=== PATIENT | male | born 1940 | race African-American/Black ===

== ENCOUNTER 2016-09-28 12:42 | Inpatient (IN) | payer MEDICARE, SELFPAY ==
--- NOTE | ~2016-09-28 | OP ---
Record Of Operation [facility] [address] [place]. [address] NAME: LISETTE DEWEY : 42 STATUS : ADM IN PAT#: [id number] AGE: 76 ADM/REG DATE : 09/28/16 MR#: [id number] REPORT SERV DATE: 09/28/16 DICTATED BY: BRO GURROLA DATE: 09/28/16 REPORT STATUS : Draft TRANSCRIBED BY: MODL DATE: 09/28/16 DATE OF PROCEDURE: 09/28/2016 PREOPERATIVE DIAGNOSIS: Peripheral arterial disease, nonhealing wound, left foot. POSTOPERATIVE DIAGNOSIS: Peripheral arterial disease, nonhealing wound, left foot. PROCEDURE: 1. Left leg arteriogram. 2. Angioplasty of left superficial femoral artery. 3. Angioplasty, left anterior tibial artery, with pedal access. 4. Debridement of skin, subcutaneous tissues, and bone, left foot, 3 x 2 cm. 5. Placement of VAC dressing, 3 x 2 cm. FELLOW: Dr. Odom. ANESTHESIA: Local with sedation. COMPLICATIONS: None. ESTIMATED BLOOD LOSS: 30 mL. HISTORY: The patient is a 76-year-old male with a left foot wound which is status post toes 3 and 4 amputation which is not healing. Ultrasound showed residual ischemia. It was thought he would benefit from arteriogram with intervention as well as debridement. Discussed in detail with the patient and , and they expressed understanding and desire to proceed. PROCEDURE IN DETAIL: The patient was taken to the operating room and placed in the supine position. He was given IV sedation without complication. Both groins and entire left leg were prepped and draped in sterile fashion. Ultrasound was used to identify the common femoral on the right. 1% lidocaine was infiltrated in the skin and subcutaneous tissues. Under ultrasound guidance, an 18-gauge needle was placed in the common femoral artery. Wire was passed to the aorta which was confirmed with fluoroscopy. The needle was removed. A 5- Turkmen sheath was placed. UF catheter was passed over the wire. Aortogram showed patent aorta and patent common, internal, and external iliac arteries bilaterally. Wire was placed in the catheter, and the catheter was placed into the external iliac artery on the left. Arteriogram showed patent common femoral, profunda femoral, and superficial femoral arteries to the mid thigh. In the distal thigh, there was heavy atherosclerotic disease of the SFA with stenosis. The popliteal artery was patent above and below the knee. The wire was placed back in the catheter and catheter placed as distal as possible in the SFA. Arteriogram below the knee showed a patent peroneal artery to the ankle. The anterior tibial artery was patent to the mid lower leg and occluded. The posterior tibial artery was occluded throughout the lower leg. At the foot, the peroneal artery diminished at the ankle with small collaterals on either foot. The dorsalis pedis artery appeared to reconstitute via collaterals just beneath the ankle joint. A wire was guided into the popliteal artery. Record Of Operation [facility] [address] [facility] [place]. [address] NAME: LISETTE DEWEY : 42 STATUS : ADM IN PAT#: [id number] AGE: 76 ADM/REG DATE : 09/28/16 MR#: [id number] REPORT SERV DATE: 09/28/16 DICTATED BY: BRO GURROLA DATE: 09/28/16 REPORT STATUS : Draft TRANSCRIBED BY: HAN DATE: 09/28/16 The sheath was exchanged for a 65 sheath. The patient was given 4000 units of heparin intravenously. A V-18 was guided into the anterior tibial artery. Attempts were made to cross the distal occlusion with the V-18 and 0.018 TrailBlazer. However, after multiple attempts, this was not possible. Attention was then turned to the foot, and the dorsalis pedis artery was accessed under ultrasound guidance with an 18-gauge needle in a retrograde fashion and micropuncture wire passed proximally. The needle was removed. Micropuncture dilator was placed. The V-18 wire was then easily passed in through the anterior tibial artery to the SFA. A snare was brought from the sheath in the right groin and grasped the V 18 wire which was then brought out of the access in the right groin. The TrailBlazer catheter was then passed over the wire to the dorsalis pedis artery. Arteriogram here showed access within the dorsalis pedis artery filling branches onto the foot. The wire was replaced, and the anterior tibial artery to the dorsalis pedis was angioplastied first with a 2.5 x 150 mm balloon and then a 3 x 220 mm balloon. Post arteriogram now showed a widely patent anterior tibial artery to the foot with prompt flow and no residual stenosis. This was felt to be an excellent result. A 7 mm balloon was then used to angioplasty the stenotic areas in the superficial femoral artery. Post arteriogram here showed the SFA to be patent now with no significant residual stenosis. This was felt to be an excellent result. The sheath was removed. Access was closed with ProGlide device without difficulty. Attention was turned to the left foot. The sutures at the previous amputation were removed. A #10 blade was used to excise the necrotic subcutaneous tissues. What appeared to be necrotic proximal phalanx of the 3rd and 4th toes was identified in the wound. A rongeur was used to remove this to healthy tissue as well. Once all necrotic tissue was removed, the wound was debrided with scissors to healthy tissue. The wound measured 2 x 3 cm. Bovie cautery was used to achieve hemostasis. A small VAC sponge was then cut to appropriate size, secured with adhesive, and suction initiated without difficulty. The patient tolerated the procedure well. He had a strong dorsalis pedis signal at the foot at the end of the case. CITLALY/HAN Bro Gurrola M.D. / [id number] CC: Shane Lee MD
[~2016-09-28 12:42] MED LIST: ACT300 PO; ASAB PO; ASTELIN NAS; ASTEPRO0.15 % NAS; B121000P IM; BYSTOLIC10 MG PO; BYSTOLIC5 MG PO; CALTRAT600 PO; CARDURA8 MG PO; CONSTULOSE PO; COREG6 PO; DEMA20 PO; DIOV160 PO; DIOVAN320 MG PO; DIOVAN40 MG PO; DULERA 200 MCG/13 GM INH; FLEX PO; FLINTSTONE3 PO; FLOMAX4 PO; FLONASE NAS; FOLIC PO; IMU PO; INSNOV7030 SC; IVVIBRA PO; L40 PO; LINZESS 145 M145 MCG PO; LOP25 PO; LORTAB 5 PO; METHOC500B PO; MIRALAX POWDER1 PKT PO; MULTIPLE VIT PO; NEUR400 PO; NEXIUM40 PO; NORV10 PO; NOVOLOG SC; NOVOLOGMIX SC; ORENCIA250 MG SC; P1 PO; PERCOCET 10/3251 TAB PO; PERCOCET1 TA4 PO; PLAQ200B PO; PRILOSEC40 MG PO; PROAIR HFA INH; PROAIRRESP INH; SINGULAIR1 PO; SPIRO50 PO; SYMBICORT 160/41 INH INH; VITAMIN A8000 UNIT PO; VITAMIN D1000 UNI1 PO; VITAMIN D31000 UNIT PO; VITC500 PO; [UNRECOGNIZED DRUG - OTHER] PO
[2016-09-28 13:04] LABS: BASOPHILS 0.3 %; BASOPHILS ABSOLUTE 0.02 10/3/uL (0.0-0.16); EOSINOPHILS 2.3 %; EOSINOPHILS ABSOLUTE 0.17 10/3/uL (0.0-0.53); HEMATOCRIT 36.6 % (40.0-51.0); HEMOGLOBIN 12.1 g/dL (13.6-17.8); IMMATURE GRANULOCYTES 0.3 %; IMMATURE GRANULOCYTES ABSOLUTE 0.02 10/3/uL (0.0-0.11); LYMPHOCYTES 22.1 %; LYMPHOCYTES ABSOLUTE 1.61 10/3/uL (0.67-4.30); MEAN CORPUS HGB CONC 33.1 g/dL (32.0-36.0); MEAN CORPUSCULAR HEMOGLOB 28.9 pg (26.0-34.0); MEAN CORPUSCULAR VOLUME 87.4 fL (80-100); MEAN PLATELET VOLUME 10.6 fL (9.2-13.0); MONOCYTES ABSOLUTE 0.51 10/3/uL (0.21-1.20); NEUTROPHILS ABSOLUTE 4.97 10/3/uL (2.02-8.40); PLATELET COUNT 110 10/3/uL (150-400); RBC DISTRIBUTION WIDTH 14.4 % (12.0-16.0); RED CELL COUNT 4.19 10/6/uL (4.7-6.1)
[2016-09-28 13:07] LABS: MANUAL DIFF NO %; WHITE BLOOD CELLS 7.3 10/3/uL (4.5-10.5)
[2016-09-28 13:17] LABS: BUN (BLOOD UREA NITROGEN) 21 MG/DL (6-23); CALCIUM, SERUM 8.8 MG/DL (8.5-10.4); CHLORIDE, SERUM 104 MMOL/L (96-112); CO2 (CARBON DIOXIDE) 33 MMOL/L (24-34); CREATININE 1.31 MG/DL (0.70-1.30); GFR AFRICAN AMERICAN 62 ML/MIN (>=60); GFR NON AFRICAN AMERICAN 53 ML/MIN (>=60); GLUCOSE, SERUM 121 MG/DL (60-99); POTASSIUM, SERUM 4.1 MMOL/L (3.5-5.3); SODIUM, SERUM 140 MMOL/L (135-148)
[2016-09-28 19:39] LABS: HEMATOCRIT 37.2 % (40.0-51.0); HEMOGLOBIN 12.4 g/dL (13.6-17.8)
[2016-09-29 06:33] LABS: BUN (BLOOD UREA NITROGEN) 22 MG/DL (6-23); CALCIUM, SERUM 8.3 MG/DL (8.5-10.4); CHLORIDE, SERUM 105 MMOL/L (96-112); CREATININE 1.32 MG/DL (0.70-1.30); GFR AFRICAN AMERICAN 61 ML/MIN (>=60); GFR NON AFRICAN AMERICAN 53 ML/MIN (>=60); GLUCOSE, SERUM 145 MG/DL (60-99); SODIUM, SERUM 138 MMOL/L (135-148)
[2016-09-29 06:34] LABS: CO2 (CARBON DIOXIDE) 28 MMOL/L (24-34); POTASSIUM, SERUM 5.3 MMOL/L (3.5-5.3)
[2016-09-30 06:58] LABS: BUN (BLOOD UREA NITROGEN) 23 MG/DL (6-23); CALCIUM, SERUM 8.4 MG/DL (8.5-10.4); CHLORIDE, SERUM 101 MMOL/L (96-112); CO2 (CARBON DIOXIDE) 31 MMOL/L (24-34); CREATININE 1.28 MG/DL (0.70-1.30); GFR AFRICAN AMERICAN 63 ML/MIN (>=60); GFR NON AFRICAN AMERICAN 55 ML/MIN (>=60); POTASSIUM, SERUM 4.6 MMOL/L (3.5-5.3); SODIUM, SERUM 137 MMOL/L (135-148)
[2016-09-30 06:59] LABS: GLUCOSE, SERUM 212 MG/DL (60-99)
[2016-09-30] MEDS ORDERED: PLAVIX PO (15:09)
[2016-09-30] MEDS ORDERED: LIPITOR40 PO (15:09)
[2016-11-14] MEDS ORDERED: ASAB PO (15:35)
[2016-11-14] MEDS ORDERED: PLAVIX PO (15:36)
[2016-12-08] MEDS ORDERED: CELEBREX2 PO (12:38)
[2016-12-08] MEDS ORDERED: [UNRECOGNIZED DRUG - OTHER] PO (12:44)
[2016-12-08] MEDS ORDERED: ACETSUP650 PR (12:45)
[2016-12-08] MEDS ORDERED: BISR PR (12:47)
[2016-12-08] MEDS ORDERED: FLEETS ENEMA (12:48)
[2016-12-08] MEDS ORDERED: GERI-MOX PO (12:49)
[2016-12-08] MEDS ORDERED: GERI-TUSSIN PO (12:50)
[2016-12-08] MEDS ORDERED: MOMUD PO (12:52)
[2016-12-08] MEDS ORDERED: T PO (12:53)
[2016-12-08] MEDS ORDERED: MSIMMREL PO (12:57)
[2016-12-21] MEDS ORDERED: PERCOCET 10/3251 TAB PO (14:22)
== END 2016-09-30 20:32 | disposition home health service (06) | DRG 504 ==
LOC: SDC 12:42 → 2SO 21:16
PROVIDERS: Anesthesiology; Surgery
PROC: B41G1ZZ Fluoroscopy of Left Lower Extremity Arteries using Low Osmolar Contrast (ICD-10-PCS; principal; 2016-09-28 14:45)
PROC: 0QBP0ZZ Excision of Left Metatarsal, Open Approach (ICD-10-PCS; 2016-09-28 14:45)
PROC: 047K3ZZ Dilation of Right Femoral Artery, Percutaneous Approach (ICD-10-PCS; 2016-09-28 14:45)
PROC: 047Q3ZZ Dilation of Left Anterior Tibial Artery, Percutaneous Approach (ICD-10-PCS; 2016-09-28 14:45)
DX: T87.89 Other complications of amputation stump (principal); I42.0 Dilated cardiomyopathy; I47.2 Ventricular tachycardia; K31.84 Gastroparesis; E11.51 Type 2 diabetes mellitus with diabetic peripheral angiopathy without gangrene; E11.43 Type 2 diabetes mellitus with diabetic autonomic (poly)neuropathy; I70.245 Atherosclerosis of native arteries of left leg with ulceration of other part of foot; I50.9 Heart failure, unspecified; I25.10 Atherosclerotic heart disease of native coronary artery without angina pectoris; M19.90 Unspecified osteoarthritis, unspecified site; N18.2 Chronic kidney disease, stage 2 (mild); F17.210 Nicotine dependence, cigarettes, uncomplicated; K74.60 Unspecified cirrhosis of liver; Z83.3 Family history of diabetes mellitus; Z95.0 Presence of cardiac pacemaker; Z98.890 Other specified postprocedural states; Z82.49 Family history of ischemic heart disease and other diseases of the circulatory system; Z80.1 Family history of malignant neoplasm of trachea, bronchus and lung; Z80.41 Family history of malignant neoplasm of ovary; Z88.5 Allergy status to narcotic agent; Z91.040 Latex allergy status; Z91.048 Other nonmedicinal substance allergy status; Z86.718 Personal history of other venous thrombosis and embolism
CPT/HCPCS: 11042; 36247; 37224; 37228; 75625; 75710; 75774; 80048; 82962; 85014; 85018; 85025; 93005; 93288; 94640; 97161-GP; 97605; A9270-GY; C1725; C1760; C1769; C1894; G8978-CK-GP; G8979-CJ-GP; J0690; J2175; J2270; J2370; J2405; J3010; Q9967

== ENCOUNTER 2016-10-03 11:36 | Emergency (ER) | payer MEDICARE, SELFPAY ==
[~2016-10-03 11:36] MED LIST changes: +LIPITOR40 PO; +PLAVIX PO
[2016-11-14] MEDS ORDERED: ASAB PO (15:35)
[2016-11-14] MEDS ORDERED: PLAVIX PO (15:36)
[2016-12-08] MEDS ORDERED: CELEBREX2 PO (12:38)
[2016-12-08] MEDS ORDERED: [UNRECOGNIZED DRUG - OTHER] PO (12:44)
[2016-12-08] MEDS ORDERED: ACETSUP650 PR (12:45)
[2016-12-08] MEDS ORDERED: BISR PR (12:47)
[2016-12-08] MEDS ORDERED: FLEETS ENEMA (12:48)
[2016-12-08] MEDS ORDERED: GERI-MOX PO (12:49)
[2016-12-08] MEDS ORDERED: GERI-TUSSIN PO (12:50)
[2016-12-08] MEDS ORDERED: MOMUD PO (12:52)
[2016-12-08] MEDS ORDERED: T PO (12:53)
[2016-12-08] MEDS ORDERED: MSIMMREL PO (12:57)
[2016-12-21] MEDS ORDERED: PERCOCET 10/3251 TAB PO (14:22)
== END 2016-10-03 13:05 | disposition home or self-care (01) ==
LOC: ER 11:36
DX: M79.662 Pain in left lower leg (principal); E11.9 Type 2 diabetes mellitus without complications; Z88.2 Allergy status to sulfonamides; Z91.048 Other nonmedicinal substance allergy status; Z79.82 Long term (current) use of aspirin; Z79.52 Long term (current) use of systemic steroids; Z79.4 Long term (current) use of insulin; Z79.899 Other long term (current) drug therapy
CPT/HCPCS: 99283

== ENCOUNTER 2016-10-07 11:55 | Inpatient (IN) | payer MEDICARE ==
--- NOTE | ~2016-10-07 | HP ---
History And Physical [place] [id number] [facility] [place]. [address] NAME: LISETTE DEWEY : 42 STATUS : ADM IN [facility]#: [id number] AGE: 76 ADM/REG DATE : 10/08/16 MR#: [id number] REPORT SERV DATE: 10/13/16 DICTATED BY: TEE LOVE DATE: 10/13/16 REPORT STATUS : Draft TRANSCRIBED BY: MODL DATE: 10/13/16 DATE OF ADMISSION: 10/08/2016 HISTORY AND PHYSICAL CONSULTATION REASON FOR CONSULTATION: Hyponatremia. HISTORY OF PRESENT ILLNESS: This very pleasant 76-year-old male is status post a left transmetatarsal amputation. He had undergone a left third and fourth toe amputation on August 26 and afterwards had a left lower extremity arteriogram with angioplasty with debridement and Vac-Pac placement to that area on September 28, further debridement of that left foot on 10/07/2016 but the wound was persistent and very slow to heal so decision was made to have the transmetatarsal amputation done. He is postop day 3 from that surgery as it was on 10/10/[address] Gerson Gurrola. He has recovered from that surgery well, however, he has had some hyponatremia postoperatively and in review of his sodium lab history prior to this admission, his sodium had been within normal limits. The patient denies any significant changes in his medication regimen. He is not currently exhibiting any signs of encephalopathy, is able to answer all questions appropriately. Alert and oriented. Moving all extremities x4. This surgery, all stemmed from a small wound that appeared on his left foot in May where it was initially followed by Podiatry, and then he was referred to Dr. Gerson Gurrola, and again hospitalist was consulted for hyponatremia. PAST MEDICAL HISTORY: Includes diabetes type 2, BPH, peripheral vascular disease, hypertension, gastritis, arthritis, questionable rheumatoid. SURGICAL HISTORY: Back surgery, some 8 years ago; arteriogram of the right lower extremity; carpal tunnel syndrome; and the above described surgical history in the HPI. ALLERGIES: TO SULFA AND LATEX. SOCIAL HISTORY: He denies any alcohol or tobacco usage. Primary care is Dr. Peguero; vascular surgeon, Dr. Gerson Gurrola; insole stiffener Dr. Solis; GI Dr. Pope; and Cardiology Dr. Cuevas. FAMILY HISTORY: Mother with liver cancer. Sister with an NE and diabetes. Another sister with ovarian cancer and unknown father's history, and a brother with coronary disease, diabetes as well. REVIEW OF SYSTEMS: Ten-point review of systems was performed which is negative except for pertinents mentioned in the above HPI. PHYSICAL EXAMINATION: VITAL SIGNS: Reveals a temperature 98.0, pulse rate of 78, blood pressure 132/80, History And Physical [address] [address] NAME: LISETTE DEWEY : 42 STATUS : ADM IN PAT#: [id number] AGE: 76 ADM/REG DATE : 10/08/16 MR#: [id number] REPORT SERV DATE: 10/13/16 DICTATED BY: TEE LOVE DATE: 10/13/16 REPORT STATUS : Draft TRANSCRIBED BY: HAN DATE: 10/13/16 respiratory rate of 18. The patient is on room air saturating 95%. GENERAL: He is alert and oriented x3. No focal deficits with the bandage clean, dry, and intact to his left foot. He is cooperative and awake in no acute distress for this exam. NECK: Normal thyroid. No lymphadenopathy. No JVD noted. LUNGS: Clear to auscultation bilaterally. Normal respiratory effort. HEART: An aortic murmur is auscultated on chest wall. He has a paced rhythm per the monitor. ABDOMEN: His abdomen is soft, nontender. Active bowel sounds. Positive bowel movement today. EXTREMITIES: No appreciable edema in his lower extremities. Normal distal pulses on the right although faint. HEENT: PERRLA is noted. Sclerae are clear. SKIN: Otherwise, skin is warm and dry. LAB WORK: Lab work review; sodium 127, potassium 4.9, BUN of 23, creatinine 1.46, and most recent glucose was 165. ASSESSMENT: 1. Hyponatremia. 2. Diabetes type 2. 3. Peripheral vascular disease. 4. Hypertension. 5. Hyperlipidemia. 6. Chronic arthritis. 7. History of valve surgery but cannot remember which valve. 8. History of pacemaker. We will plan on instituting a fluid restriction about 1000 mL for 24 hours. We will start some normal saline at 80 mL an hour for 1 L. We will check urine studies including urinalysis, urine osmolality, and urine sodium. Check hemoglobin A1c and check a TSH. We will stop his MiraLAX at this time. Follow all this lab work to determine a more root cause for his hyponatremia. Corrected sodium with his current glucose is 129. The patient is in agreement with this plan going forward. We thank you for this consultation. We will follow along with you. CSC/MODL Tee Love NP / [id number] CC: Shane Lee M.D.
--- NOTE | ~2016-10-07 | DS ---
Discharge Summary [facility] [address] [place]. [address] NAME: LISETTE DEWEY : 42 STATUS : DIS IN PAT#: [id number] AGE: 76 ADM/REG DATE : 10/08/16 MR#: [id number] REPORT SERV DATE: 10/27/16 DICTATED BY: BRO GURROLA DATE: 10/26/16 REPORT STATUS : Draft TRANSCRIBED BY: HAN DATE: 10/26/16 Data Collection from hospitalization DISCHARGE DIAGNOSIS(ES): 1. Gangrenous wound, left foot. 2. Peripheral arterial disease. 3. Diabetes mellitus type 2. 4. Hypertension. 5. Benign prostatic hypertrophy. 6. History of gastritis. 7. Arthritis. CONSULTATIONS: Tee Gorman NP PROCEDURES PERFORMED: 1. Debridement of skin and subcutaneous tissue, excisional 3 x 4 cm, 10/07/2016. 2. Transmetatarsal amputation of the left foot, 10/10/2016. PATHOLOGY: Left foot transmetatarsal amputation, gangrene, margins viable; complicated atherosclerosis; organizing venous thrombosis; status post amputation of the third and fourth toes. MEDICATIONS: Vitamin C 500 mg daily, aspirin 81 mg daily, Lipitor 40 mg daily, Astelin two sprays each nostril daily, Plavix 75 mg daily, vitamin D 1000 units daily, folic acid 1 mg daily, Plaquenil 400 mg daily, NovoLog insulin level 1 sliding scale before meals and at bedtime, NovoLog 10 units before meals, Robaxin 500 mg twice daily, milk of magnesia 30 mL daily, Singulair 10 mg at bedtime, Theragran tablet without minerals one daily, Lopressor 25 mg twice daily, Flomax 0.4 mg daily, Demadex 20 mg daily, Actigall 300 mg with breakfast and supper, Diovan 40 mg twice daily, vitamin A 10,000 units daily, prednisone 5 mg with breakfast, Dulera two puffs twice daily, Colace 100 mg twice daily as needed, glucose three tablets as needed, nitroglycerin 0.4 mg sublingually as needed, Percocet 10/325 one or two every four hours as needed, ProAir two puffs every six hours as needed, vitamin B12 of 1000 mcg IM every 30 days, Orencia infusion 125 mg subcutaneously weekly on Mondays, MiraLAX powder one packet daily, and Flonase one spray each nostril daily as directed. CONDITION AT DISCHARGE: Upon discharge, he did appear to be doing well and had no complaints. DISPOSITION: He had been discharged with transfer to [facility] to continue a diabetic diet with activity as discussed. He was to follow up with me in the office in two weeks and have a BMP drawn in two days. HOSPITAL COURSE: This 76-year-old male underwent a recent percutaneous revascularization and debridement. He developed additional necrotic tissue around the wound on his left foot. It was felt that he would benefit from repeat debridement and evaluation in the operating room. This had been discussed in detail with the patient and his . They expressed understanding and desired to proceed. He was therefore admitted for further evaluation. Upon admission to the hospital, he had been taken to the operating room where he did undergo Discharge [address] [address] NAME: LISETTE DEWEY : 42 STATUS : DIS IN PAT#: [id number] AGE: 76 ADM/REG DATE : 10/08/16 MR#: [id number] REPORT SERV DATE: 10/27/16 DICTATED BY: BRO GURROLA DATE: 10/26/16 REPORT STATUS : Draft TRANSCRIBED BY: HAN DATE: 10/26/16 the above procedure. He tolerated this well and was transferred to the recovery room. The procedure was done on 10/07/2016, and then he was admitted to inpatient status on 10/08/2016. On postop day 1, his pain was overall well controlled. He had tolerated his diet. He was afebrile, and his vital signs were stable. He appeared to be in no distress. His dressing had revealed minimal serosanguineous drainage. On postop day #2, he continued to do well and had no pain in the left foot and just stated that it was sore. He was continued on his current medications. On postop day #3, he was afebrile and his vital signs had remained stable. He had been taken back to the operating room where he did undergo the above procedure. He had tolerated this well and was transferred to the recovery room on 10/11/2016. He had been evaluated by Physical Therapy. He did have good pain control, was doing well post transmetatarsal amputation. On 10/12/2016, he had remained in stable condition and had no new complaints. His foot pain was stable. He did remain in stable condition and was seen by Tee Gorman on 10/13/2016. As he was noted to be hyponatremic, he recommended that the patient be placed on fluid restriction of about 1000 mL per day and had also been placed on normal saline at 80 mL/h x1 L. MiraLAX was also discontinued and hemoglobin A1c was to be checked. On 10/14/2016, he did appear to be doing well, and his sodium was under much better control. Due to his stable condition, he was then discharged with the above instructions. Information collected by: Kylee Quinn. I submit the above information as my discharge summary. SCOOBY/MODL Bro Gurrola M.D. / [id number] CC: Shane Lee M.D. [facility]
--- NOTE | ~2016-10-07 | OP ---
Record Of Operation [facility] [address] [place]. [address] NAME: LISETTE DEWEY : 42 STATUS : [place] [facility] PAT#: [id number] AGE: 76 ADM/REG DATE : 10/07/16 MR#: [id number] REPORT SERV DATE: 10/07/16 DICTATED BY: BRO MASON DATE: 10/07/16 REPORT STATUS : Draft TRANSCRIBED BY: MODL DATE: 10/07/16 DATE OF PROCEDURE: 10/07/2016 PREOPERATIVE DIAGNOSIS: Gangrenous wound with peripheral arterial disease, left foot. POSTOPERATIVE DIAGNOSIS: Gangrenous wound with peripheral arterial disease, left foot. PROCEDURE: Debridement of skin and subcutaneous tissues, excisional 3 x 4 cm. SURGEON: Bro Mason M.D. WHOLESALE ACCOUNT EXECUTIVE: Greyson. ANESTHESIA: General. COMPLICATIONS: None. BLOOD LOSS: 20 mL. HISTORY: The patient is a 76-year-old male, who underwent recent percutaneous revascularization and debridement. He has developed additional necrotic tissues around the wound on his left foot. It was thought he would benefit from repeat debridement and evaluation in the operating room. This was discussed in detail with the patient and . They expressed understanding and desired to proceed. DESCRIPTION OF PROCEDURE: The patient was taken to the operating room and placed in the supine position. He was given general anesthesia without complication. Left foot was prepped and draped in a sterile fashion. A 10 blade was used to excise necrotic tissue at the previous 3rd and 4th toe amputation site to healthy bleeding tissue. There was no purulence or evidence of infection. The wound did track a bit towards the second toe. Once all necrotic tissue was removed, Bovie cautery was used to achieve hemostasis. The wound was then dressed with Xeroform, 4 x 4, Kerlix, and Rajat wrap. The patient tolerated the procedure well and will be taken to the recovery room and admitted for continued care. CITLALY/HAN Bro Mason M.D. / [id number] CC: Shane Lee M.D.
--- NOTE | ~2016-10-07 | OP ---
Record Of Operation [facility] [address] [place]. [address] NAME: LISETTE DEWEY : 42 STATUS : ADM IN PAT#: [id number] AGE: 76 ADM/REG DATE : 10/08/16 MR#: [id number] REPORT SERV DATE: 10/10/16 DICTATED BY: BRO GURROLA DATE: 10/10/16 REPORT STATUS : Draft TRANSCRIBED BY: HAN DATE: 10/10/16 DATE OF PROCEDURE: 10/10/2016 PREOPERATIVE DIAGNOSES: Left foot wound with peripheral arterial disease and diabetes. POSTOPERATIVE DIAGNOSES: Left foot wound with peripheral arterial disease and diabetes. PROCEDURE: Transmetatarsal amputation of the left foot. SURGEON: Bro Gurrola M.D. PHOTOGRAPHER LITHOGRAPHIC: Cata. ANESTHESIA: General. COMPLICATIONS: None. BLOOD LOSS: 30. HISTORY: The patient is a 76-year-old male with left foot wound status post 3rd and 4th toe amputations and repeat revascularization. The wound extended over towards the second toe and was healing slowly. It was felt the best option would be a transmetatarsal amputation. Discussed in detail with the patient and , they expressed understanding and desired to proceed. DESCRIPTION OF PROCEDURE: The patient was taken to the operating room and placed in the supine position. He was given general anesthesia without complication. Left foot was prepped and draped in sterile fashion. An incision was created on the dorsal aspect of the toes proximal to the metatarsal heads and this was extended onto the plantar aspect distal to the metatarsal head creating a long posterior flap. Dissection was continued to the metatarsal bone circumferentially, which was then divided with a power saw. The remaining toes and metatarsal heads were sent off as specimen. The residual tendons on the posterior flap were removed. The wound was copiously irrigated. Hemostasis was achieved with Bovie cautery. The bone edges were smoothed with a rongeur. A 16 mL of 0.5% Marcaine were injected into the wound. Once hemostasis was assured, the flaps were brought together with multiple interrupted 2-0 Ethilon vertical mattress sutures and a sterile dressing applied. The patient tolerated the procedure well, was taken to the recovery room, and then back to his room for continued care. CITLLAY/HAN Bro Gurrola M.D. Record Of Operation [address] [address] NAME: LISETTE DEWEY : 42 STATUS : ADM IN PAT#: [id number] AGE: 76 ADM/REG DATE : 10/08/16 MR#: [id number] REPORT SERV DATE: 10/10/16 DICTATED BY: BRO GURROLA DATE: 10/10/16 REPORT STATUS : Draft TRANSCRIBED BY: MODL DATE: 10/10/16 / [id number] CC: Shane Lee M.D.
[2016-10-10 11:50] LABS: CALCIUM, SERUM 8.8 MG/DL (8.5-10.4); CHLORIDE, SERUM 94 MMOL/L (96-112); CO2 (CARBON DIOXIDE) 33 MMOL/L (24-34); CREATININE 1.34 MG/DL (0.70-1.30); GFR AFRICAN AMERICAN 60 ML/MIN (>=60); GFR NON AFRICAN AMERICAN 52 ML/MIN (>=60); GLUCOSE, SERUM 194 MG/DL (60-99); PHOSPHORUS, SERUM 2.3 MG/DL (2.5-4.5)
[2016-10-10 11:52] LABS: BUN (BLOOD UREA NITROGEN) 19 MG/DL (6-23); SODIUM, SERUM 128 MMOL/L (135-148)
[2016-10-10 15:23] LABS: BASOPHILS 0.1 %; BASOPHILS ABSOLUTE 0.01 10/3/uL (0.0-0.16); EOSINOPHILS 0.3 %; EOSINOPHILS ABSOLUTE 0.02 10/3/uL (0.0-0.53); HEMATOCRIT 36.1 % (40.0-51.0); IMMATURE GRANULOCYTES 0.3 %; IMMATURE GRANULOCYTES ABSOLUTE 0.02 10/3/uL (0.0-0.11); LYMPHOCYTES 7.5 %; LYMPHOCYTES ABSOLUTE 0.55 10/3/uL (0.67-4.30); MEAN CORPUS HGB CONC 33.2 g/dL (32.0-36.0); MEAN CORPUSCULAR HEMOGLOB 28.8 pg (26.0-34.0); MEAN CORPUSCULAR VOLUME 86.6 fL (80-100); MEAN PLATELET VOLUME 10.7 fL (9.2-13.0); MONOCYTES 6.7 %; MONOCYTES ABSOLUTE 0.49 10/3/uL (0.21-1.20); NEUTROPHILS 85.1 %; NEUTROPHILS ABSOLUTE 6.25 10/3/uL (2.02-8.40); RED CELL COUNT 4.17 10/6/uL (4.7-6.1); WHITE BLOOD CELLS 7.3 10/3/uL (4.5-10.5)
[2016-10-10 15:24] LABS: MANUAL DIFF NO %; PLATELET COUNT 153 10/3/uL (150-400)
[2016-10-10 15:30] LABS: INTERNATIONAL NORMAL RATI 1.1 UNITS (-); PROTIME (NOT ORD) 14.5 SEC (12.0-14.5)
[2016-10-10 15:31] LABS: PARTIAL THROMBO TIME 33.1 SEC (22.5-37.2)
[2016-10-12 04:38] LABS: CALCIUM, SERUM 8.6 MG/DL (8.5-10.4); CHLORIDE, SERUM 94 MMOL/L (96-112); CO2 (CARBON DIOXIDE) 30 MMOL/L (24-34); CREATININE 1.58 MG/DL (0.70-1.30); GFR AFRICAN AMERICAN 49 ML/MIN (>=60); GFR NON AFRICAN AMERICAN 42 ML/MIN (>=60); GLUCOSE, SERUM 159 MG/DL (60-99); POTASSIUM, SERUM 5.4 MMOL/L (3.5-5.3); SODIUM, SERUM 128 MMOL/L (135-148)
[2016-10-12 04:40] LABS: BUN (BLOOD UREA NITROGEN) 25 MG/DL (6-23)
[2016-10-13 06:54] LABS: BUN (BLOOD UREA NITROGEN) 23 MG/DL (6-23); CALCIUM, SERUM 8.4 MG/DL (8.5-10.4); CHLORIDE, SERUM 96 MMOL/L (96-112); CO2 (CARBON DIOXIDE) 28 MMOL/L (24-34); CREATININE 1.46 MG/DL (0.70-1.30); GFR AFRICAN AMERICAN 54 ML/MIN (>=60); GFR NON AFRICAN AMERICAN 47 ML/MIN (>=60); GLUCOSE, SERUM 165 MG/DL (60-99); POTASSIUM, SERUM 4.9 MMOL/L (3.5-5.3); SODIUM, SERUM 127 MMOL/L (135-148)
[2016-10-13 22:32] LABS: OSMOLALITY, URINE 299 MOSM/KG (50-1200)
[2016-10-13 22:37] LABS: SODIUM, URINE 80 MEQ/L
[2016-10-14 04:58] LABS: BASOPHILS 0.2 %; BASOPHILS ABSOLUTE 0.01 10/3/uL (0.0-0.16); EOSINOPHILS 0.5 %; EOSINOPHILS ABSOLUTE 0.03 10/3/uL (0.0-0.53); HEMOGLOBIN 10.1 g/dL (13.6-17.8); IMMATURE GRANULOCYTES 0.3 %; IMMATURE GRANULOCYTES ABSOLUTE 0.02 10/3/uL (0.0-0.11); LYMPHOCYTES 11.8 %; LYMPHOCYTES ABSOLUTE 0.78 10/3/uL (0.67-4.30); MEAN CORPUSCULAR HEMOGLOB 29.5 pg (26.0-34.0); MEAN CORPUSCULAR VOLUME 86.8 fL (80-100); MEAN PLATELET VOLUME 10.3 fL (9.2-13.0); MONOCYTES 11.7 %; MONOCYTES ABSOLUTE 0.77 10/3/uL (0.21-1.20); NEUTROPHILS 75.5 %; NEUTROPHILS ABSOLUTE 4.98 10/3/uL (2.02-8.40); PLATELET COUNT 145 10/3/uL (150-400); RED CELL COUNT 3.42 10/6/uL (4.7-6.1); WHITE BLOOD CELLS 6.6 10/3/uL (4.5-10.5)
[2016-10-14 05:00] LABS: HEMATOCRIT 29.7 % (40.0-51.0); MANUAL DIFF NO %
[2016-10-14 05:14] LABS: BUN (BLOOD UREA NITROGEN) 24 MG/DL (6-23); CALCIUM, SERUM 8.7 MG/DL (8.5-10.4); CHLORIDE, SERUM 97 MMOL/L (96-112); CO2 (CARBON DIOXIDE) 27 MMOL/L (24-34); GFR AFRICAN AMERICAN 57 ML/MIN (>=60); GFR NON AFRICAN AMERICAN 49 ML/MIN (>=60); GLUCOSE, SERUM 181 MG/DL (60-99); POTASSIUM, SERUM 4.7 MMOL/L (3.5-5.3); SGOT(AST) 27 U/L (5-40); SGPT(ALT) 21 U/L (5-65); SODIUM, SERUM 131 MMOL/L (135-148); TOTAL BILIRUBIN 0.7 MG/DL (0-1.2); TOTAL PROTEIN 6.8 G/DL (6.0-8.5)
[2016-10-14 05:16] LABS: A/G RATIO 0.5 (0.7-1.9); ALBUMIN 2.3 G/DL (3.5-5.0); ALKALINE PHOSPHATASE 158 U/L (45-117); GLOBULIN 4.5 G/DL (2.5-4.1)
[2016-11-14] MEDS ORDERED: ASAB PO (15:35)
[2016-11-14] MEDS ORDERED: PLAVIX PO (15:36)
[2016-12-08] MEDS ORDERED: CELEBREX2 PO (12:38)
[2016-12-08] MEDS ORDERED: [UNRECOGNIZED DRUG - OTHER] PO (12:44)
[2016-12-08] MEDS ORDERED: ACETSUP650 PR (12:45)
[2016-12-08] MEDS ORDERED: BISR PR (12:47)
[2016-12-08] MEDS ORDERED: FLEETS ENEMA (12:48)
[2016-12-08] MEDS ORDERED: GERI-MOX PO (12:49)
[2016-12-08] MEDS ORDERED: GERI-TUSSIN PO (12:50)
[2016-12-08] MEDS ORDERED: MOMUD PO (12:52)
[2016-12-08] MEDS ORDERED: T PO (12:53)
[2016-12-08] MEDS ORDERED: MSIMMREL PO (12:57)
[2016-12-21] MEDS ORDERED: PERCOCET 10/3251 TAB PO (14:22)
== END 2016-10-14 17:23 | DRG 464 ==
LOC: SDC 11:55 → SDC/OF 14:59 → 2SO 15:47
PROVIDERS: Nurse Practitioner Family; Surgery
PROC: 0HBNXZZ Excision of Left Foot Skin, External Approach (ICD-10-PCS; principal; 2016-10-07 13:15)
PROC: 0Y6N0Z9 Detachment at Left Foot, Partial 1st Ray, Open Approach (ICD-10-PCS; 2016-10-10)
PROC: 0Y6N0ZB Detachment at Left Foot, Partial 2nd Ray, Open Approach (ICD-10-PCS; 2016-10-10)
PROC: 0Y6N0ZC Detachment at Left Foot, Partial 3rd Ray, Open Approach (ICD-10-PCS; 2016-10-10)
PROC: 0Y6N0ZD Detachment at Left Foot, Partial 4th Ray, Open Approach (ICD-10-PCS; 2016-10-10)
PROC: 0Y6N0ZF Detachment at Left Foot, Partial 5th Ray, Open Approach (ICD-10-PCS; 2016-10-10)
DX: T87.54 Necrosis of amputation stump, left lower extremity (principal); E11.52 Type 2 diabetes mellitus with diabetic peripheral angiopathy with gangrene; E11.621 Type 2 diabetes mellitus with foot ulcer; E87.1 Hypo-osmolality and hyponatremia; N40.0 Benign prostatic hyperplasia without lower urinary tract symptoms; K29.70 Gastritis, unspecified, without bleeding; I25.10 Atherosclerotic heart disease of native coronary artery without angina pectoris; N18.9 Chronic kidney disease, unspecified; E78.5 Hyperlipidemia, unspecified; K74.60 Unspecified cirrhosis of liver; M19.90 Unspecified osteoarthritis, unspecified site; M06.9 Rheumatoid arthritis, unspecified; Z88.2 Allergy status to sulfonamides; Z79.4 Long term (current) use of insulin; Z95.1 Presence of aortocoronary bypass graft; Z80.0 Family history of malignant neoplasm of digestive organs; Z82.49 Family history of ischemic heart disease and other diseases of the circulatory system; Z83.3 Family history of diabetes mellitus; Z95.810 Presence of automatic (implantable) cardiac defibrillator; Z91.040 Latex allergy status
CPT/HCPCS: 11042; 28805; 80048; 80053; 82962; 83036; 83735; 83930; 83935; 84100; 84300; 84443; 85025; 85610; 85730; 88307; 88311; 94640; 97110-GP; 97116-GP; 97161-GP; 97164-GP; A9270-GY; G8978-CK-GP; G8979-CI-GP; J0690; J2270; J2370; J2405; J3010

== ENCOUNTER 2016-10-25 12:37 | Inpatient (IN) | payer MEDICARE ==
--- NOTE | ~2016-10-25 | CN ---
Consultation Report [facility] [address] [place]. [address] NAME: LISETTE DEWEY : 42 STATUS : ADM IN PAT#: [id number] AGE: 76 ADM/REG DATE : 10/25/16 MR#: [id number] REPORT SERV DATE: 10/26/16 DICTATED BY: JEISON AGUIRRE DATE: 10/26/16 REPORT STATUS : Draft TRANSCRIBED BY: MODL DATE: 10/26/16 CARDIOLOGY CONSULTATION DATE OF CONSULTATION: INDICATION: Abnormal ECG. HISTORY: The patient is a 76-year-old white male with a history of hypertension and diabetes, followed by Dr. Cuveas. He is status post aortic root replacement and mitral valve repair by Dr. Cline (01/04/2010). He had a dual chamber biventricular ICD implanted 02/08/[address] Davis. The last documented EF evaluation I have is in 04/2015 which indicated an ejection fraction at 20%. The patient notes moderate exertional dyspnea. He has had no PND or orthopnea. No dizziness or lightheadedness. He notes no palpitations. He underwent previous transmetatarsal amputation. He had been in rehab at [facility] in the weeks prior. At this time, he is comfortable and does not note any palpitations. CURRENT HOME MEDICATIONS: Abatacept 125 mcg subcu Monday, albuterol inhalers, ascorbic acid 500 per day, aspirin 81 a day, atorvastatin 40 a day, azelastine nasal spray daily, cholecalciferol 1000 per day, clopidogrel 75 a day, cyanocobalamin a 1000 per day, fluticasone nasal spray 50 daily, folic acid 1 mg per day, gabapentin 100 three times a day, hydroxychloroquine 200 mg tablets two tablets daily, insulin NovoLog as directed, methocarbamol 500 b.i.d., metoprolol 25 b.i.d., mometasone formoterol 200/5 two puffs b.i.d., montelukast 10 per day, multivitamins without minerals daily, oxycodone 10/325 q.4 hours p.r.n., polyethylene glycol mix one packet three times a day, prednisone 5 mg per day, tamsulosin 0.4 per day, torsemide 20 per day, Ursodiol 300 b.i.d., valsartan 40 b.i.d., vitamin A 1000 per day. ALLERGIES OR INTOLERANCES: Sulfa-containing antibiotics, codeine, and adhesive tape. SOCIAL HISTORY: . Three children. Negative for tobacco or alcohol use. He is retired, having worked previously in a factory. FAMILY HISTORY: Mother of unknown causes. Father may have had some type of coronary artery disease. PAST MEDICAL HISTORY/REVIEW OF SYSTEMS: See above. He has a history of diabetes mellitus, hypertension, and previously third-degree block. He has esophageal varices due to a cirrhotic liver. He has chronic sinusitis and a history of reactive airways disease. His ejection fraction following surgery was in the 45% range, I do not see any other evaluation of his ejection fraction since April 2016. Consultation Report [place] [id number] [place]. [address] NAME: LISETTE DEWEY : 42 STATUS : ADM IN [facility]#: [id number] AGE: 76 ADM/REG DATE : 10/25/16 MR#: [id number] REPORT SERV DATE: 10/26/16 DICTATED BY: JEISON AGUIRRE DATE: 10/26/16 REPORT STATUS : Draft TRANSCRIBED BY: HAN DATE: 10/26/16 PHYSICAL EXAMINATION: GENERAL: A 76-year-old male. VITAL SIGNS: Blood pressure 130/65, pulse 82 and regular, respirations 18. SKIN: No xanthelasmas. HEENT: Normocephalic. There is no pallor. Sclerae white. JVD is not elevated. CHEST: There are no crackles. CARDIAC: PMI is displaced. There is a 2/6 systolic ejection murmur with early diastolic component at the right second interspace. ABDOMEN: Without tenderness. EXTREMITIES: Without edema. Dressing is on the left foot, status post metatarsal surgery. NEUROLOGIC: No focal deficits. Musculoskeletal: Moderate sarcopenia. LABORATORY DATA: BUN 31, creatinine 1.46. White count 7.5, hemoglobin 11.3. Note that the gram-negative bacilli were observed in one of the cultures. Culture source is not identified. Device interrogation shows PACs and PVCs. Review of his 12-lead ECG shows unifocal PVCs likely outflow tract in origin. Plus occasional PACs. IMPRESSION: Normally functioning defibrillator. The patient has an underlying unifocal premature ventricular contractions and occasional premature atrial contractions. No further intervention is required. He will continue followup with Dr. Cuevas. I will see him as needed. MICHEL/HAN Jeison Aguirre M.D. / [id number] CC: Shane Lee M.D. [facility]
--- NOTE | ~2016-10-25 | DS ---
Discharge Summary [facility] [address] [place]. [address] NAME: LISETTE DEWEY : 44 STATUS : DIS IN PAT#: [id number] AGE: 76 ADM/REG DATE : 10/25/16 MR#: [id number] REPORT SERV DATE: 11/16/16 DICTATED BY: BRO GURROLA DATE: 11/15/16 REPORT STATUS : Draft TRANSCRIBED BY: HAN DATE: 11/15/16 Data Collection from hospitalization DISCHARGE DIAGNOSIS(ES): 1. Left foot wound. 2. Type 2 diabetes mellitus. 3. Hypertension. 4. 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 5. History of third-degree block. 6. Reactive airway disease. 7. 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 8. Chronic sinusitis. CONSULTATIONS: Anthony Aguirre M.D. and Prateek Breaux M.D. PROCEDURES PERFORMED: None. MEDICATIONS: Vitamin C 500 mg daily, aspirin 81 mg daily, Lipitor 40 mg daily, Astelin two sprays nasally daily, Plavix 75 mg daily, vitamin D3 of 1000 units daily, Flonase nasal spray one spray nasally daily, folic acid 1 mg daily, Neurontin 100 mg three times a day, Plaquenil 400 mg daily, NovoLog injection insulin 10 units subcutaneously before meals, Robaxin 500 mg twice a day, Singulair 10 mg at bedtime, multivitamins one tablet daily, Lopressor 25 mg twice a day, MiraLAX one packet three times a day, Flomax 0.4 mg daily, Demadex 20 mg daily, Actigall 300 mg twice a day, Diovan 40 mg twice a day, vitamin A 8000 units daily, Deltasone 5 mg daily, Dulera two puffs via inhaler twice a day, ProAir two puffs via inhaler every six hours as needed, Orencia 125 mg subcutaneously on Mondays, vitamin B12 of 1000 mcg IM every 30 days, and Percocet 10/325 one tablet every four hours as needed. CONDITION AT DISCHARGE: Stable. DISPOSITION: The patient was discharged to [facility] on a 2000-calorie diabetic diet with activities as instructed. The patient was to follow up with me two weeks following discharge. HOSPITAL COURSE: This is a 76-year-old man who [facility]. He had been started on Cleocin. He was complaining of pain in the foot. He described having the drainage since being at the [facility]. The patient has atherosclerosis of burns paiute arteries of the left leg with ulceration of other part of the foot. The patient was admitted to the hospital at this time for further evaluation and treatment. Upon admission, IV antibiotics were going to begin. The following day, he was afebrile. The left foot drainage had decreased. Cultures had revealed gram positive cocci. Antibiotics were continued. Sliding scale insulin was being provided. He was evaluated by Physical Therapy. He was seen by Dr. Anthony Aguirre regarding abnormal ECG. 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 He had a dual chamber biventricular ICD implanted in 02/2016. His last documented ejection fraction from 04/2015 Discharge Summary [address] [place]. [address] NAME: LISETTE DEWEY : 44 STATUS : DIS IN PAT#: [id number] AGE: 76 ADM/REG DATE : 10/25/16 MR#: [id number] REPORT SERV DATE: 11/16/16 DICTATED BY: BRO GURROLA DATE: 11/15/16 REPORT STATUS : Draft TRANSCRIBED BY: HAN DATE: 11/15/16 indicated ejection fraction of 20%. The patient had noticed moderate exertional dyspnea. He has had no PND or orthopnea, dizziness, or lightheadedness. He had no palpitations. He had previously undergone a transmetatarsal amputation and had been at rehab in the weeks prior to this admission. At this time, he was comfortable and did not note any palpitations. Creatinine level was 1.46. Gram-negative bacilli had been observed in one of the cultures. Device interrogation showed PACs and PVCs. His 12-lead ECG showed unifocal PVCs likely outflow tract in origin plus occasional PACs. He has a normally functioning defibrillator. It was felt that no further intervention was required. On the , pain control was better. The wound had superficial eschar. The drainage had decreased. Antibiotics were continued. He was seen by Dr. Prateek Breaux for evaluation and treatment of wound infection. Wound cultures returned Gram-positive cocci on Gram stain. It was growing enterococci and E. coli, both of which were sensitive to Zosyn, which he was on along with vancomycin. The E. coli is resistant to Unasyn. He said that he was feeling better. He did have just a low-grade temperature that was now normal on antibiotics. White blood cell count was normal. He continued to have severe pain in the foot. The persistent infection at the site of the transmetatarsal amputation was felt due to his severe vascular disease. It was felt this was more the cause of this rather than true surgical wound infection. Zosyn was continued. Vancomycin was stopped. On 10/28/2016, he seemed to be feeling a little better. He remained afebrile. He was making slow progress. Zosyn was continued. He had less pain in the foot. Over the next couple of days, the foot appeared stable. He had no new complaints. He had no new symptoms. Discharge planning was performed. On the , he had no further cellulitis or eschar formation. The left foot was doing well. Wound care and antibiotic care continued. Discharge planning was performed. On 11/01/2016, he remained afebrile. He was feeling better. Discharge instructions were given. Due to his improved and stable condition, he was discharged to [facility] with the above-stated instructions. Information collected by: Trina Chaudhary I submit the above information as my discharge summary. KRISTI/HAN Bro Gurrola M.D. / [id number] CC: Shane Lee M.D. David Wendt, M.D. Anthony Breaux, DANAY [facility]
--- NOTE | ~2016-10-25 | CN ---
Consultation Report [facility] [address] [place]. [address] NAME: LISETTE DEWEY : 44 STATUS : ADM IN [facility]#: [id number] AGE: 76 ADM/REG DATE : 10/25/16 MR#: [id number] REPORT SERV DATE: 10/27/16 DICTATED BY: TREVER CUETO DATE: 10/27/16 REPORT STATUS : Draft TRANSCRIBED BY: MODL DATE: 10/27/16 INFECTIOUS DISEASE CONSULT DATE OF CONSULTATION: REASON FOR REFERRAL: Evaluation and treatment of wound infection. HISTORY OF PRESENT ILLNESS: The patient is a 76-year-old male, he has a history of hypertension, diabetes mellitus, arrhythmias for which he has an ICD, valvular disease for which he had aortic root replacement and mitral valve repair here in 2009, and persistent problems with peripheral vascular disease treated in the left lower extremity, despite revascularization had progressive problems with left third and fourth toes, those had to be amputated in August, difficulty with wound healing persisted, and so eventually by 10/10/2016, it was necessary to do a transmetatarsal amputation which was accomplished. He was sent home and unclear to me whether he actually went home on antibiotics, but at the time of the procedure it appeared that any infection present had been removed. He returned though two days ago with a nonhealing and eschar formation in the medial part of the wound that was cultured, shows gram-positive cocci on the Gram stain. It is growing an enterococcus and an E coli, both of which were sensitive to Zosyn, which he is on along with vancomycin. The E coli is resistant to Unasyn. He says that he feels better. He has had just a low-grade temperature that is now normal on antibiotics. His white blood cell count was normal. He continues to have severe pain with the foot. PAST MEDICAL HISTORY: Otherwise unremarkable. MEDICATIONS: As described above. ALLERGIES: HE HAS AN ALLERGY TO SULFA TO WHICH HE GETS A RASH. SOCIAL HISTORY: He is , retired, and does not smoke. He has no history of alcohol or substance abuse. FAMILY HISTORY: Coronary artery disease. PHYSICAL EXAMINATION: GENERAL: Nontoxic adult male, in no acute distress. He is alert oriented x3. VITAL SIGNS: His temperature here today is 98.1, last elevated temperature of any was 99.3 two days ago, present pulse 83, respirations 16, blood pressure 110/57. Weight 62 kg. HEENT: Sclerae clear. No oral lesions. NECK: Supple. LUNGS: Clear. HEART: Regular rate and rhythm. ABDOMEN: Soft and nontender. Positive bowel sounds. Consultation Report [address] [place]. [address] NAME: LISETTE DEWEY : 44 STATUS : ADM IN [facility]#: [id number] AGE: 76 ADM/REG DATE : 10/25/16 MR#: [id number] REPORT SERV DATE: 10/27/16 DICTATED BY: TREVER CUETO DATE: 10/27/16 REPORT STATUS : Draft TRANSCRIBED BY: HAN DATE: 10/27/16 EXTREMITIES: The left foot has a dressing. There is no active drainage from the wound, just eschar medially. It is warm and exquisitely tender all around the incision. No acute- appearing lesions on the other side. LABORATORY DATA: White count 7.5, hematocrit 33.7, platelets 225. At the time of admission, normal differential on the white blood cell count. BUN and creatinine today 27 and 1.41. IMPRESSION: Persistent infection at the site of a transmetatarsal amputation, due to his severe vascular disease. I think that is more the cause of this rather than a true surgical wound infection. RECOMMENDATIONS: 1. Continue Zosyn since it covers both the isolated organisms as well as possible anaerobes which could be playing a role in this. 2. Stop the vancomycin. 3. Further procedures per Dr. Gurrola. Finally, I will follow the patient with you. 4. I appreciate very much your consulting on this patient. ARIANNA Trever Cueto M.D. / [id number] CC: Shane Lee M.D.
[2016-10-25 13:40] LABS: BASOPHILS 0.3 %; BASOPHILS ABSOLUTE 0.02 10/3/uL (0.0-0.16); EOSINOPHILS 0.3 %; EOSINOPHILS ABSOLUTE 0.02 10/3/uL (0.0-0.53); HEMATOCRIT 33.7 % (40.0-51.0); HEMOGLOBIN 11.3 g/dL (13.6-17.8); IMMATURE GRANULOCYTES 0.9 %; IMMATURE GRANULOCYTES ABSOLUTE 0.07 10/3/uL (0.0-0.11); LYMPHOCYTES 7.4 %; LYMPHOCYTES ABSOLUTE 0.56 10/3/uL (0.67-4.30); MANUAL DIFF NO %; MEAN CORPUS HGB CONC 33.5 g/dL (32.0-36.0); MEAN CORPUSCULAR HEMOGLOB 29.2 pg (26.0-34.0); MEAN CORPUSCULAR VOLUME 87.1 fL (80-100); MEAN PLATELET VOLUME 10.1 fL (9.2-13.0); MONOCYTES 7.2 %; MONOCYTES ABSOLUTE 0.54 10/3/uL (0.21-1.20); NEUTROPHILS 83.9 %; NEUTROPHILS ABSOLUTE 6.33 10/3/uL (2.02-8.40); PLATELET COUNT 225 10/3/uL (150-400); RED CELL COUNT 3.87 10/6/uL (4.7-6.1); WHITE BLOOD CELLS 7.5 10/3/uL (4.5-10.5)
[2016-10-25 13:55] LABS: CALCIUM, SERUM 8.8 MG/DL (8.5-10.4); CHLORIDE, SERUM 97 MMOL/L (96-112); CO2 (CARBON DIOXIDE) 26 MMOL/L (24-34); CREATININE 1.46 MG/DL (0.70-1.30); GFR AFRICAN AMERICAN 54 ML/MIN (>=60); GFR NON AFRICAN AMERICAN 47 ML/MIN (>=60); GLUCOSE, SERUM 158 MG/DL (60-99); POTASSIUM, SERUM 5.2 MMOL/L (3.5-5.3); SODIUM, SERUM 130 MMOL/L (135-148)
[2016-10-25 13:56] LABS: BUN (BLOOD UREA NITROGEN) 31 MG/DL (6-23)
[2016-10-25] MEDS ORDERED: VITC500 PO (21:31)
[2016-10-25] MEDS ORDERED: ASAB PO (21:31)
[2016-10-25] MEDS ORDERED: PROAIRRESP INH (21:31)
[2016-10-25] MEDS ORDERED: ORENCIA250 MG SC (21:31)
[2016-10-25] MEDS ORDERED: PLAVIX PO (21:32)
[2016-10-25] MEDS ORDERED: LIPITOR40 PO (21:32)
[2016-10-25] MEDS ORDERED: VITAMIN D31000 UNIT PO (21:32)
[2016-10-25] MEDS ORDERED: ASTELIN NAS (21:32)
[2016-10-25] MEDS ORDERED: FOLIC PO (21:33)
[2016-10-25] MEDS ORDERED: B121000P IM (21:33)
[2016-10-25] MEDS ORDERED: FLONASE NAS (21:33)
[2016-10-25] MEDS ORDERED: PLAQ200B PO (21:33)
[2016-10-25] MEDS ORDERED: METHOC500B PO (21:34)
[2016-10-25] MEDS ORDERED: NOVOLOGMIX SC (21:34)
[2016-10-25] MEDS ORDERED: LOP25 PO (21:34)
[2016-10-25] MEDS ORDERED: NEUR100 PO (21:34)
[2016-10-25] MEDS ORDERED: SINGULAIR1 PO (21:35)
[2016-10-25] MEDS ORDERED: PERCOCET 10/3251 TAB PO (21:35)
[2016-10-25] MEDS ORDERED: DULERA 200 MCG/13 GM INH (21:35)
[2016-10-25] MEDS ORDERED: MULTIVIT/MIN PO (21:35)
[2016-10-25] MEDS ORDERED: P5 PO (21:36)
[2016-10-25] MEDS ORDERED: FLOMAX4 PO (21:36)
[2016-10-25] MEDS ORDERED: MIRALAX POWDER1 PKT PO (21:36)
[2016-10-25] MEDS ORDERED: VITAMIN A8000 UNIT PO (21:37)
[2016-10-25] MEDS ORDERED: DEMA20 PO (21:37)
[2016-10-25] MEDS ORDERED: ACT300 PO (21:37)
[2016-10-25] MEDS ORDERED: DIOVAN40 MG PO (21:37)
[2016-10-27 06:09] LABS: BUN (BLOOD UREA NITROGEN) 27 MG/DL (6-23); CALCIUM, SERUM 8.3 MG/DL (8.5-10.4); CHLORIDE, SERUM 99 MMOL/L (96-112); CO2 (CARBON DIOXIDE) 26 MMOL/L (24-34); CREATININE 1.41 MG/DL (0.70-1.30); GFR AFRICAN AMERICAN 56 ML/MIN (>=60); GFR NON AFRICAN AMERICAN 49 ML/MIN (>=60); GLUCOSE, SERUM 154 MG/DL (60-99); POTASSIUM, SERUM 4.6 MMOL/L (3.5-5.3); SODIUM, SERUM 132 MMOL/L (135-148)
[2016-10-30 06:40] LABS: BASOPHILS 0.2 %; BASOPHILS ABSOLUTE 0.01 10/3/uL (0.0-0.16); EOSINOPHILS 1.5 %; EOSINOPHILS ABSOLUTE 0.07 10/3/uL (0.0-0.53); HEMOGLOBIN 9.7 g/dL (13.6-17.8); IMMATURE GRANULOCYTES 0.4 %; IMMATURE GRANULOCYTES ABSOLUTE 0.02 10/3/uL (0.0-0.11); LYMPHOCYTES 17.4 %; MEAN CORPUS HGB CONC 32.9 g/dL (32.0-36.0); MEAN CORPUSCULAR HEMOGLOB 28.9 pg (26.0-34.0); MEAN CORPUSCULAR VOLUME 87.8 fL (80-100); MEAN PLATELET VOLUME 10.9 fL (9.2-13.0); MONOCYTES 9.1 %; MONOCYTES ABSOLUTE 0.42 10/3/uL (0.21-1.20); NEUTROPHILS 71.4 %; NEUTROPHILS ABSOLUTE 3.28 10/3/uL (2.02-8.40); RBC DISTRIBUTION WIDTH 13.8 % (12.0-16.0); RED CELL COUNT 3.36 10/6/uL (4.7-6.1); WHITE BLOOD CELLS 4.6 10/3/uL (4.5-10.5)
[2016-10-30 06:41] LABS: HEMATOCRIT 29.5 % (40.0-51.0); MANUAL DIFF NO %; PLATELET COUNT 122 10/3/uL (150-400)
[2016-10-30 06:52] LABS: BUN (BLOOD UREA NITROGEN) 26 MG/DL (6-23); CALCIUM, SERUM 8.6 MG/DL (8.5-10.4); CHLORIDE, SERUM 100 MMOL/L (96-112); CO2 (CARBON DIOXIDE) 27 MMOL/L (24-34); CREATININE 1.34 MG/DL (0.70-1.30); GFR AFRICAN AMERICAN 60 ML/MIN (>=60); GFR NON AFRICAN AMERICAN 52 ML/MIN (>=60); GLUCOSE, SERUM 177 MG/DL (60-99); SODIUM, SERUM 134 MMOL/L (135-148)
[2016-11-14] MEDS ORDERED: ASAB PO (15:35)
[2016-11-14] MEDS ORDERED: PLAVIX PO (15:36)
[2016-12-08] MEDS ORDERED: CELEBREX2 PO (12:38)
[2016-12-08] MEDS ORDERED: [UNRECOGNIZED DRUG - OTHER] PO (12:44)
[2016-12-08] MEDS ORDERED: ACETSUP650 PR (12:45)
[2016-12-08] MEDS ORDERED: BISR PR (12:47)
[2016-12-08] MEDS ORDERED: FLEETS ENEMA (12:48)
[2016-12-08] MEDS ORDERED: GERI-MOX PO (12:49)
[2016-12-08] MEDS ORDERED: GERI-TUSSIN PO (12:50)
[2016-12-08] MEDS ORDERED: MOMUD PO (12:52)
[2016-12-08] MEDS ORDERED: T PO (12:53)
[2016-12-08] MEDS ORDERED: MSIMMREL PO (12:57)
[2016-12-21] MEDS ORDERED: PERCOCET 10/3251 TAB PO (14:22)
== END 2016-11-01 15:53 | DRG 565 ==
LOC: 5SO 12:37
PROVIDERS: Surgery
DX: T87.44 Infection of amputation stump, left lower extremity (principal); I42.0 Dilated cardiomyopathy; E11.9 Type 2 diabetes mellitus without complications; I10 Essential (primary) hypertension; I49.1 Atrial premature depolarization; I49.3 Ventricular premature depolarization; I73.9 Peripheral vascular disease, unspecified; Z95.2 Presence of prosthetic heart valve; Z79.899 Other long term (current) drug therapy; Z79.82 Long term (current) use of aspirin; Z88.2 Allergy status to sulfonamides; Z88.5 Allergy status to narcotic agent; Z82.49 Family history of ischemic heart disease and other diseases of the circulatory system; Z95.810 Presence of automatic (implantable) cardiac defibrillator
CPT/HCPCS: 80048; 82962; 85025; 87070; 87075; 87077; 87186; 87205; 93005; 93288; 94640; 97110-GP; 97116-GP; 97161-GP; A9270-GY; G8978-CK-GP; G8979-CK-GP; J2543; J3370